=== PATIENT | male | born 1980 | race Two or more races ===

== ENCOUNTER 2022-04-30 16:27 | Inpatient (IN) | payer MEDICAID ==
[~2022-04-30] VITALS: Ht 172.7 cm; Wt 83.9 kg
[2022-04-30] MEDS ORDERED: IV NS 0.9% 1,000 ML BAG IV ONE ×2 (17:30→18:00)
[2022-04-30] MEDS ORDERED: FAMOTIDINE/PF INJ 20 MG/2 ML VIAL IV ONE (17:30)
[2022-04-30] MEDS ORDERED: Folic acid 1 MG in IV D5W 50 ML IV SCH (17:30)
[2022-04-30] MEDS ORDERED: Thiamine 100 MG in IV D5W 50 ML IV SCH (17:30)
[2022-04-30] MEDS ORDERED: LORAZEPAM INJ 2 MG/ML VIAL IV ONE (17:30)
[2022-04-30] MEDS ORDERED: ACETAMINOPHEN 325 MG TABLET PO ONE (18:00)
--- NOTE | 2022-04-30 18:00 | NUR ---
Pt made aware of plan of care. Concurs/cooperative.
[2022-04-30] MEDS ORDERED: ACETAMINOPHEN ES 500 MG TABLET ONE (18:05)
[2022-04-30 18:09] LABS: BASOPHILS % (AUTO) 0.1 % (0.0-2.0); HEMATOCRIT 45 % (39-51); HEMOGLOBIN 14.7 g/dL (13.5-17.5); LYMPHOCYTES # (AUTO) 0.6 K/uL (0.8-4.8); LYMPHOCYTES % (AUTO) 6.5 % (20.0-44.0); MEAN CORPUSCULAR HGB CONC 33 g/dl (31.0-36.0); MEAN CORPUSCULAR VOLUME 92 fL (80-96); MONOCYTES # (AUTO) 0.2 K/uL (0.1-1.30); MONOCYTES % (AUTO) 1.9 % (2.0-12.0); NEUTROPHILS # (AUTO) 8.3 K/uL (1.8-8.9); NEUTROPHILS % (AUTO) 91.5 % (43.0-81.0); PLATELET COUNT (AUTO) 305 K/uL (150-450); RED BLOOD CELL COUNT(AUTO) 4.92 MIL/uL (4.5-6.0); WHITE BLOOD COUNT (AUTO) 9.1 K/uL (4.3-11.0)
[2022-04-30 18:27] LABS: CALCIUM, SERUM 8.8 mg/dL (8.5-10.1); CARBON DIOXIDE 28 mmol/L (21-32); CHLORIDE 99 mmol/L (98-107); CREATININE 1.1 mg/dL (0.6-1.3); GLUCOSE 138 mg/dL (74-106); POTASSIUM 5.2 mmol/L (3.5-5.1); SODIUM SERUM 133 mmol/L (136-145); UREA NITROGEN, BLOOD 13 mg/dL (7-18)
[2022-04-30 18:41] LABS: ALANINE AMINOTRANSFERASE 40 U/L (12-78); ALBUMIN 3.1 g/dL (3.4-5.0); ALKALINE PHOSPHATASE 66 U/L (46-116); ASPARTATE AMINOTRANSFERASE 22 U/L (15-37); BILIRUBIN,DIRECT 0.3 mg/dL (0.0-0.2); BILIRUBIN,TOTAL 0.9 mg/dL (0.2-1.0); TOTAL PROTEIN, SERUM 7.4 g/dL (6.4-8.2)
[2022-04-30] MEDS ORDERED: CEFTRIAXONE 1 G in IV D5W 50 ML IV ONE (19:00)
[2022-04-30] MEDS ORDERED: AZITHROMYCIN 500 MG in IV D5W 250 ML IV ONE (19:00)
[2022-04-30] MEDS ORDERED: CEFTRIAXONE 1 G VIAL ONE (19:07)
--- NOTE | 2022-04-30 19:19 | NUR ---
Report given to CHANCE Padron
[2022-04-30 19:35] LABS: BILIRUBIN,URINE NEGATIVE (NEGATIVE); COLOR,URINE YELLOW (YELLOW); LEUKOCYTE ESTERASE ,URINE NEGATIVE (NEGATIVE); NITRITE, URINE NEGATIVE (NEGATIVE); PROTEIN,URINE NEGATIVE (NEGATIVE); UGLUCOSE NEGATIVE (NEGATIVE)
--- NOTE | 2022-04-30 20:17 | NUR ---
PROCAL 4.4
--- NOTE | 2022-04-30 20:41 | NUR ---
RM 109
--- NOTE | 2022-04-30 21:10 | NUR ---
REPORT GIVEN TO DWIGHT TYLER RN.
--- NOTE | 2022-04-30 21:27 | NUR ---
BROUGHT TO ROOM VIA ACLS PROTOCOL
[2022-04-30] MEDS ORDERED: Z GUARD REMEDY 4 OZ OINT TP PRN (22:00)
[2022-04-30] MEDS ORDERED: ONDANSETRON HCL/PF 4 MG/2 ML VIAL IVP PRN (22:00)
[2022-04-30] MEDS ORDERED: HYDROCODONE/APAP 10/325MG TABLET PO PRN (22:00)
[2022-04-30] MEDS ORDERED: MAGNESIUM HYDROXIDE 30 ML UDC PO PRN (22:00)
[2022-04-30] MEDS ORDERED: HYDROCODONE/APAP 5/325MG TABLET PO PRN (22:00)
[2022-04-30] MEDS ORDERED: LORAZEPAM 1 MG TABLET PO PRN (22:00)
[2022-04-30] MEDS ORDERED: MAG HYDROX/AL HYDROX/SIMETH 30 ML UDC PO PRN (22:00)
[2022-04-30] MEDS: IV NS 0.9% 1,000 ML IV SCH (22:15)
--- NOTE | 2022-04-30 23:00 | NUR ---
BEAM SAW OPERATORNETWORK SYSTEMS INTEGRATOR NOTE PATIENT WAS BROUGHT TO THE UNIT AT AROUND 2130 VIA STRETCHER, ACCOMPANIED BY 2 ER STAFFS. PATIENT IS ALERT AND ORIENTED X4. ABLE TO COMMUNICATE NEEDS WITH THE STAFFS. PATIENT WAS ADMITTED D/T FEVER/CHILLS WITH COUGH AND WEAKNESS THAT WORSEN TODAY. PATIENT WAS ALSO NOTED WITH PRODUCTIVE COUGH. DIRECTED TO ROOM 109-1 AND EXPLAINED ADMISSION PROCESS WHICH INCLUDES SKIN ASSESSMENT AND THE PATIENT AGREES WITH IT. UPON INSPECTION, SKIN IS INTACT AND NO EDEMA WAS NOTED. WITH IV ACCESS ON R AC 18G-SL. VITALS TAKEN AND FOLLOWS: BP- 102/66 P- 118, T- 98.7, O2 SAT 99% ON O2 INHALATION VIA NASAL CANNULA, R- 18. CONNECTED TO EXTERNAL INTEGRITY CONSULTANT WITH CURRENT READING OF ST 118. BELONGINGS AND VALUABLES WERE PROPERLY CHECKED AND DOCUMENTED. MEDICATED ORDERED. STARTED IV HYDRATION OF NS AT 100ML/HR. SAFETY MEASURES IN PLACE. KEPT BED IN LOCKED AND IN LOW POSITION TO REDUCE INJURY. ADVISED TO USE THE CALL LIGHT WHEN IN NEED OF ASSISTANCE.
[2022-05-01 01:00] VITALS: BP 101/53
[2022-05-01] MEDS: ACETAMINOPHEN 325 MG TABLET PO PRN ×2 (04:39→18:22)
--- NOTE | 2022-05-01 04:42 | NUR ---
GAS WELDER APPRENTICE NOTE PATIENT WAS NOTED WITH MILD FEVER (100F). MEDICATED WITH TYLENOL AND ENCOURAGED THE PATIENT TO INCREASE ORAL FLUID INTAKE.
[2022-05-01 05:00] VITALS: BP 116/74
--- NOTE | 2022-05-01 06:00 | NUR ---
WATER MECHANIC NOTE RECHECKED TEMPERATURE AND WENT DOWN FROM 100 TO 98F. NO C/O PAIN OR DISCOMFORT AND NOT IN ANY FORM OF ACUTE DISTRESS. PATIENT'S CURRENT TELE READING ST 120.
[2022-05-01 06:04] LABS: BASOPHILS % (AUTO) 0.2 % (0.0-2.0); EOSINOPHILS % (AUTO) 0.1 % (0.0-6.0); HEMATOCRIT 39 % (39-51); HEMOGLOBIN 12.7 g/dL (13.5-17.5); LYMPHOCYTES # (AUTO) 0.6 K/uL (0.8-4.8); LYMPHOCYTES % (AUTO) 4.5 % (20.0-44.0); MEAN CORPUSCULAR HGB CONC 33 g/dl (31.0-36.0); MEAN CORPUSCULAR VOLUME 91 fL (80-96); MONOCYTES # (AUTO) 0.2 K/uL (0.1-1.30); MONOCYTES % (AUTO) 1.5 % (2.0-12.0); NEUTROPHILS # (AUTO) 12.3 K/uL (1.8-8.9); NEUTROPHILS % (AUTO) 93.7 % (43.0-81.0); PLATELET COUNT (AUTO) 247 K/uL (150-450); RED BLOOD CELL COUNT(AUTO) 4.28 MIL/uL (4.5-6.0); WHITE BLOOD COUNT (AUTO) 13.2 K/uL (4.3-11.0)
--- NOTE | 2022-05-01 06:30 | NUR ---
RESIDENTIAL DRIVER CLOSING NOTE PATIENT IN BED, ASLEEP BUT EASY TO AROUSE AND RESPONSIVE. ABLE TO COMMUNICATE NEEDS WITH THE STAFFS. BREATHING EVEN AND NON LABORED. ON O2 INHALATION VIA NASAL CANNULA AT 2LPM. WITH IV ACCESS ON RAC 18G RUNNING WITH NS AT 100ML/HR. MEDICATED ORDERED. OFFERED AND ENCOURAGED FLUIDS TOLERATED. SAFETY MEASURES IN PLACE. KEPT BED IN LOCKED AND IN LOW POSITION. SIDE RAILS UP X2. ADVISED TO USE THE CALL LIGHT WHEN IN NEED OF ASSISTANCE. ALL NURSING NEEDS ATTENDED. ENDORSED TO INCOMING SHIFT FOR CONTINUITY OF CARE.
[2022-05-01 06:31] LABS: CALCIUM, SERUM 8.1 mg/dL (8.5-10.1); CREATININE 0.9 mg/dL (0.6-1.3); MAGNESIUM 1.8 mg/dL (1.8-2.4); PHOSPHORUS 2.4 mg/dL (2.5-4.9)
[2022-05-01] MEDS: IV NS 0.9% 1,000 ML IV SCH (08:38)
[2022-05-01 09:00] VITALS: BP 113/72
[2022-05-01] MEDS ORDERED: CEFTRIAXONE 1 G in IV D5W 50 ML IV SCH (09:00)
[2022-05-01 11:53] LABS: BAND % (MANUAL) 24 % (0.0-5.0); EOSINOPHILS % (MANUAL) 1 % (0-4); LYMPHOCYTES % (MANUAL) 7 % (16-48); METAMYELOCYTES % 1 % (0-0); MONOCYTES % (MANUAL) 5 % (0-11.0); MYELOCYTES % 1 % (0-0); NEUTROPHILS % (MANUAL) 61 (42-76)
[2022-05-01 13:00] VITALS: BP 129/73
--- NOTE | 2022-05-01 13:00 | NUR ---
RN NOTE CONSENT FORM FOR THORACENTESIS SIGNED BY PATIENT AND PLACE IN PATIENT'S CHART.
--- NOTE | 2022-05-01 14:04 | NUR ---
SS Consult: SS consult requested for polysubstance use. The pt. is a 42-year-old White male pt. who was admitted to [facility] for Respiratory Failure per EMR. Upon SS consult, the pt. is Alert & Oriented x 4 and makes good eye contact. The pt. appears unkempt. Pt. has depressed mood & affect. Pt. has clear speech and normal thought process. Pt. was calm & cooperative throughout interview. The pt. denies current SI/HI and denies current hallucinations. NARENDRA explored pt.s mental health Hx. Pt. denies any mental health diagnosis. NARENDRA explored pt.s living situation, Pt. states he resides at home [[address] [address]] with a roommate. SW explored pt.s drug & ETOH use. Pt. states he uses Methamphetamine about 3x/month. SW completed brief drug dependence intervention. Pt. states this is not a problem for him and has no interest in drug rehab at this time. Per pt. he is ambulatory with a and independent with all of his ADLs. Pt. states he receives EBT and is employed. Plan: Per pt. he will be returning home [[address] [address]] when ready for discharge. Per pt., he will contact his roommate to pick him up when ready for DC. SW provided pt. with substance use referrals and pt. accepted them. Pt. states he will use resources if he becomes interested is treatment. ADDICTION RESOURCES For Drugs and Alcohol [facility] sober living Referrals For Rehabilitation once sober Address:[address] [place] [address] [facility] [address] [place] [address] Det[address] [facility] Substance Abuse Helpline ([facility]) Outpatient, residential treatment, recovery support for youth/adults [facility] www.[facility]counsel[facility] Teen programs for drug/alcohol education and support Sylwia Gordon [facility]. Program for adults, sliding scale provides support and education Abby Sodraft www.[employer].org [place]; Detox/residential treatment programs; transition to sober living [facility] www.cri-help.org [place]; Outpatient and residential treatment programs; transition to sober living [facility] TEL: [phone] [facility] Fermin Camarena; Outpatient education and supportive programs for teens and adults [facility] www.o[facility]womensrecovery.org [place]; Residential treatment and work program for females only [facility] www.[facility].Share Your Brain [place]: Outpatient/residential treatment program for teens and young adults [facility] www.[facility].org [place] Detox, inpatient, outpatient for adults and youth [facility], [facility]. [place]; Outpatient programs and referrals to community residential programs. Alcoholics Anonymous -SFV information and meeting and scheduleswww.aa-intergroup.org Eh-Upwd-Vraqazk https://al-anon.org/ [place] support groups for family of alcoholics. Marijuana Anonymous www.madistrict6.org -SFV listing of meetings Narcotics Anonymous www.na.org SOBER LIVING RESOURCES [facility] www.soberhousing.net A non-profit agency that provides resources to recovery and sober living homes throughout [place] [facility] Sober Living Homes: A Work in Progress, [facility] [place] [facility], [facility]: [facility] x [phone], [place] [facility] Coed Sober Living Homes: [facility]--Outpatient [facility] [address] [place] [address] [place] [address] (Specializes in in-depth psychotherapy for emotional distress: anxiety, depression, interpersonal conflicts, life transitions, childhood abuse) [facility] [address] [place] [address] (Assist with solving problem marital difficulties, separation & divorce, aging parents, & grief, chronic & terminal illness) [facility] [address] [place] [address] (Deal with loss & grief, anxiety, marital difficulties) Homebound/Mental Health Services [address] [facility] [address] [place] [address] (Provide in-home mental services to people who are incapable of leaving their homes) [facility] of the Elderly [facility] Service[facility]Resource [facility] [address] [place] [address] [facility] [address] [place] [address] Mental Health Services [facility] [address] [place] [address] Services: Outpatient therapy for children, teens, young adults, adults, older adults, and families; Psychiatric services, medication support Psychiatric Outpatient Services [facility] Partial Hospitalization and Intensive Outpatient Program (Managed Care and [place] Only)[address] [facility] [phone] [facility] Partial Hospitalization and Outpatient [id number] [facility]. [address] [place], [place] [phone] [facility] Center [id number] [facility] [address] [place], [place] [phone] [facility] Partial Hospitalization and Outpatient [id number] [facility], Operated By [facility], [phone] Crisis and Hotline Telephone Numbers 24-Hour service unless stated [facility] Hotlines: [facility] Mental Health/Crisis Line........[phone] Suicide Prevention Center (24 Hours).......[phone] Suicide Prevention Crisis Center.......[phone] (24 Hours) Assaults Against Women Hotline.........366.396.5956 (24 Hours -- [facility]) Women and Children Crisis Long-Term...........[phone] (24 Hours) Child Abuse Hotline............596.273.5710 [facility] of Childrens Services [facility] Treatment [facility] (24 Hours)..........[phone] Alcoholics Anonymous (24 Hours)..........[phone] Cocaine Anonymous (24 Hours)............[phone] Narcotics Anonymous (24 Hours)..........[phone] [address] [facility] [address], [place] [address]
[2022-05-01] MEDS ORDERED: K PHOS NEUTRAL 250 MG TABLET PO ONE (16:00)
[2022-05-01 17:00] VITALS: BP 125/77
--- NOTE | 2022-05-01 18:55 | NUR ---
RN CLOSING NOTE PATIENT IN BED, ASLEEP BUT EASY TO AROUSE AND RESPONSIVE. ABLE TO COMMUNICATE NEEDS WITH THE STAFFS. BREATHING EVEN AND NON LABORED. ON O2 INHALATION VIA NASAL CANNULA AT 2LPM. WITH IV ACCESS ON RAC 18G RUNNING WITH NS AT 100ML/HR. MEDICATED ORDERED. OFFERED AND ENCOURAGED FLUIDS TOLERATED. SAFETY MEASURES IN PLACE. KEPT BED IN LOCKED AND IN LOW POSITION. SIDE RAILS UP X2. ADVISED TO USE THE CALL LIGHT WHEN IN NEED OF ASSISTANCE. ALL NURSING NEEDS ATTENDED. ENDORSED TO PM SHIFT FOR CONTINUITY OF CARE.
--- NOTE | 2022-05-01 19:28 | NUR ---
HAND TUBE BENDER OPENING NOTE RECEIVED PT RESTING IN BED, VERBALLY RESPONSIVE. A/O X4 AND ABLE TO MAKE NEEDS KNOWN. PT ON O2 @ 2 LPM VIA NC, TOLERATING WELL. NO SOB OR S/S OF RESPIRATORY DISTRESS. BREATHING EVEN AND UNLABORED. ON EXTERNAL MULTIPLE DRUM SANDER HELPER READING ST 117 BPM. IV ACCESS RAC 18G, INTACT AND PATENT. SAFETY PRECAUTIONS IN PLACE. BED IN LOWEST LOCKED POSITION, HOB ELEVATED, SIDE RAILS UP X2, AND CALL LIGHT AND TABLE WITHIN REACH. ALL NEEDS MET AT THIS TIME.
[2022-05-01] MEDS: AZITHROMYCIN 500 MG in IV D5W 250 ML IV SCH (20:51)
[2022-05-01 21:00] VITALS: BP 116/72
[2022-05-02 01:00] VITALS: BP 104/74
[2022-05-02 05:00] VITALS: BP 116/75
[2022-05-02 05:46] LABS: BASOPHILS % (AUTO) 0.1 % (0.0-2.0); EOSINOPHILS % (AUTO) 1.3 % (0.0-6.0); HEMATOCRIT 39 % (39-51); HEMOGLOBIN 12.9 g/dL (13.5-17.5); LYMPHOCYTES # (AUTO) 0.8 K/uL (0.8-4.8); LYMPHOCYTES % (AUTO) 6.5 % (20.0-44.0); MEAN CORPUSCULAR HGB CONC 33 g/dl (31.0-36.0); MEAN CORPUSCULAR VOLUME 90 fL (80-96); MONOCYTES # (AUTO) 0.6 K/uL (0.1-1.30); MONOCYTES % (AUTO) 4.8 % (2.0-12.0); NEUTROPHILS # (AUTO) 10.8 K/uL (1.8-8.9); NEUTROPHILS % (AUTO) 87.3 % (43.0-81.0); PLATELET COUNT (AUTO) 273 K/uL (150-450); RED BLOOD CELL COUNT(AUTO) 4.35 MIL/uL (4.5-6.0); WHITE BLOOD COUNT (AUTO) 12.4 K/uL (4.3-11.0)
[2022-05-02 06:12] LABS: CALCIUM, SERUM 9.1 mg/dL (8.5-10.1); CREATININE 0.8 mg/dL (0.6-1.3); MAGNESIUM 2.2 mg/dL (1.8-2.4); PHOSPHORUS 2.5 mg/dL (2.5-4.9); POTASSIUM 3.8 mmol/L (3.5-5.1)
--- NOTE | 2022-05-02 06:24 | NUR ---
OCEANIC SCIENCES PROFESSOR CLOSING NOTE PT RESTING IN BED, VERBALLY RESPONSIVE. A/O X4 AND ABLE TO MAKE NEEDS KNOWN. PT ON O2 @ 2 LPM VIA NC, TOLERATING WELL. NO SOB OR S/S OF RESPIRATORY DISTRESS. BREATHING EVEN AND UNLABORED. ON EXTERNAL FRAME MAKER READING ST 106 BPM. IV ACCESS RAC 18G, INTACT AND PATENT. ALL DUE MEDS GIVEN ORDERED. SAFETY PRECAUTIONS IN PLACE AT ALL TIMES. BED IN LOWEST LOCKED POSITION, HOB ELEVATED, SIDE RAILS UP X2, AND CALL LIGHT AND TABLE WITHIN REACH. ALL NEEDS MET AT THIS TIME AND WILL ENDORSE TO ONCOMING NURSE FOR MAXIMO.
--- NOTE | 2022-05-02 07:11 | NUR ---
BLANKING MACHINE OPERATOR OPENING NOTES RECEIVED PATIENT SLEEPING IN BED, A/Ox4 ABLE TO MAKE NEEDS KNOWN. ON 2L O2 VIA NC, NO S/S OF RESPIRATORY DISTRESS. ON TELE MONITORING SHOWING SINUS TACH HR 102. NO C/O OF CARDIAC DISTRESS OR DISCOMFORT. IV ACCESS RAC #18 S/L, INTACT AND PATENT. PATIENT AMBULATORY HAS BRP AND USES URINAL. SKIN INTACT. SAFETY MEASURES IN PLACE: BED LOCKED AND IN LOWEST POSITION, HOB ELEVATED, SIDE RAILS UPx2, CALL LIGHT WITHIN REACH. WILL CONTINUE TO MONITOR.
[2022-05-02 08:00] VITALS: BP 106/71
[2022-05-02] MEDS: CEFTRIAXONE 2 G in IV D5W 100 ML IV SCH (08:57)
[2022-05-02] MEDS ORDERED: CEFTRIAXONE 2 G in IV D5W 50 ML IV SCH (09:00)
[2022-05-02 12:18] VITALS: BP 105/70
--- NOTE | 2022-05-02 14:30 | NUR ---
RN NOTES PATIENT TITRATED DOWN TO 1 L O2 VIA NC. TOLERATING WELL. WILL CONTINUE TO MONITOR.
[2022-05-02 16:04] VITALS: BP 101/75
--- NOTE | 2022-05-02 18:13 | NUR ---
RN NOTES PATIENT NOW ON ROOM AIR, NO S/S OF RESPIRATORY DISTRESS. HAS 1L O2 VIA NC IF NEEDED. WILL CONTINUE TO MONITOR.
--- NOTE | 2022-05-02 18:40 | NUR ---
OPTICAL MODEL MAKER AND TESTER CLOSING NOTES PATIENT SLEEPING IN BED, A/Ox4 ABLE TO MAKE NEEDS KNOWN. STABLE ON ROOM AIR, NO S/S OF RESPIRATORY DISTRESS. ON TELE MONITORING SHOWING SINUS TACH HR 101. NO C/O OF CARDIAC DISTRESS OR DISCOMFORT. IV ACCESS RAC #18 S/L, INTACT AND PATENT. PATIENT AMBULATORY HAS BRP AND USES URINAL. SKIN INTACT. ALL DUE MEDICATION ADMINISTERED. SAFETY MEASURES MAINTAINED: BED LOCKED AND IN LOWEST POSITION, HOB ELEVATED, SIDE RAILS UPx2, CALL LIGHT WITHIN REACH. WILL ENDORSE TO NEXT SHIFT ANY MAXIMO.
--- NOTE | 2022-05-02 19:35 | NUR ---
MONITOR TECH OPENING NOTES RECEIVED PATIENT SLEEPING IN BED. EASILY AWAKEN BY VERBAL STIMULI. A/Ox 4. ABLE TO MAKE NEEDS KNOWN. ON 2L O2 VIA NC, NO S/S OF RESPIRATORY DISTRESS. ON TELE MONITORING SHOWING SINUS TACH HR 88. NO C/O OF CARDIAC DISTRESS OR DISCOMFORT. IV ACCESS RAC #18 S/L, INTACT AND PATENT. PATIENT AMBULATORY HAS BRP AND USES URINAL DRAINING YELLOW COLORED URINE. SAFETY MEASURES IN PLACE: BED LOCKED AND IN LOWEST POSITION, HOB ELEVATED, SIDE RAILS UPx2, CALL LIGHT WITHIN REACH. WILL CONTINUE TO MONITOR.
[2022-05-02 20:00] VITALS: BP 120/76
[2022-05-02] MEDS: AZITHROMYCIN 500 MG in IV D5W 250 ML IV SCH (22:34)
[2022-05-02] MEDS: ACETAMINOPHEN 325 MG TABLET PO PRN (23:12)
--- NOTE | 2022-05-02 23:12 | NUR ---
RN NOTES- TYLENOL PATIENT C/O OF HEADACHE 05/01. TYLENOL 650 MG GIVEN PRN. WILL CONTINUE TO MONITOR PATIENT.
[2022-05-03] VITALS: BP 111/72
[2022-05-03 04:00] VITALS: BP 101/68
[2022-05-03 06:51] LABS: BASOPHILS % (AUTO) 0.6 % (0.0-2.0); HEMATOCRIT 40 % (39-51); HEMOGLOBIN 13.4 g/dL (13.5-17.5); LYMPHOCYTES # (AUTO) 1.5 K/uL (0.8-4.8); LYMPHOCYTES % (AUTO) 21.6 % (20.0-44.0); MEAN CORPUSCULAR HGB CONC 34 g/dl (31.0-36.0); MEAN CORPUSCULAR VOLUME 90 fL (80-96); MONOCYTES # (AUTO) 0.6 K/uL (0.1-1.30); MONOCYTES % (AUTO) 8.7 % (2.0-12.0); NEUTROPHILS # (AUTO) 4.5 K/uL (1.8-8.9); NEUTROPHILS % (AUTO) 65.1 % (43.0-81.0); PLATELET COUNT (AUTO) 336 K/uL (150-450); RED BLOOD CELL COUNT(AUTO) 4.44 MIL/uL (4.5-6.0); WHITE BLOOD COUNT (AUTO) 6.9 K/uL (4.3-11.0)
[2022-05-03 07:18] LABS: CALCIUM, SERUM 9.1 mg/dL (8.5-10.1); CREATININE 0.8 mg/dL (0.6-1.3); MAGNESIUM 2.3 mg/dL (1.8-2.4); PHOSPHORUS 3.9 mg/dL (2.5-4.9); POTASSIUM 3.6 mmol/L (3.5-5.1)
--- NOTE | 2022-05-03 07:28 | NUR ---
FORM SETTER CLOSING NOTES PATIENT SLEEPING IN BED. EASILY AWAKEN BY VERBAL STIMULI. A/Ox 4. ABLE TO MAKE NEEDS KNOWN. ON 2L O2 VIA NC, NO S/S OF RESPIRATORY DISTRESS. ON TELE MONITORING SHOWING SINUS TACH HR 88. NO C/O OF CARDIAC DISTRESS OR DISCOMFORT. IV ACCESS RAC #18 S/L, INTACT AND PATENT. PATIENT AMBULATORY HAS BRP AND USES URINAL 400CC YELLOW COLORED URINE. SAFETY MEASURES IN PLACE: BED LOCKED AND IN LOWEST POSITION, HOB ELEVATED, SIDE RAILS UPx2, CALL LIGHT WITHIN REACH. WILL ENDORSE TO THE NEXT SHIFT.
--- NOTE | 2022-05-03 07:50 | NUR ---
HAND WRAPPER OPERATOR NOTES RECEIVED PATIENT IN BED, ALERT, ORIENTED X4, PATIENT ON ROOM AIR, NO SOB NOTED, PATIENT ON TELE ST 102. PATIENT HAS RIGHT AC HEP LOCK INTACT AND FLUSHED WELL, ALL NEEDS ATTENDED, RESPIRATION EVEN AND NOT LABORED. CALL LIGHT WITHIN REACH, SAFETY MEASURES IMPLEMENTED, INSTRUCTED TO USE URINAL. WILL CONTINUE TO MONITOR
[2022-05-03 08:00] VITALS: BP 120/74
[2022-05-03] MEDS: CEFTRIAXONE 2 G in IV D5W 100 ML IV SCH (09:11)
[2022-05-03 12:00] VITALS: BP 121/76
[2022-05-03] MEDS ORDERED: DOXY-326 PO (13:19)
[2022-05-03] MEDS ORDERED: CEFD300C3 PO (13:19)
--- NOTE | 2022-05-03 15:55 | NUR ---
HORSER UP NOTE PATIENT WAS GIVEN DISCHARGE INSTRUCTIONS, PATIENT VERBALIZED UNDERSTANDINGS. TELEMETRY BOX REMOVED, HEP LOCK REMOVED, DRY DRESSING APPLIED, NO BLEEDING. INSTRUCTED HIM HOW TO TAKE NEW MEDICATIONS AND POSSIBLE SIDE EFFECTS. INSTRUCTED HIM TO FOLLOW UP WITH PCP, VERBALIZED UNDERSTANDING. BELONGING CHECKED BY ERP SPECIALIST. AWAITING FOR FRIEND TO PICK HIM UP.
--- NOTE | 2022-05-03 16:03 | NUR ---
telemarketer supervisor note discharge patient home with stable condition, friend at bedside qasim mckinley , taken to lobby on w]\c with osmar
[2022-05-03 16:05] VITALS: BP 121/84
[2022-05-04 21:06] LABS: *MYCOPLASMA PNEUMONIAE IgG 206 U/mL (0-99); *MYCOPLASMA PNEUMONIAE IgM <770 U/mL (0-769)
== END 2022-05-03 16:07 | disposition home or self-care (01) | DRG 720 ==
LOC: ER 16:45 → TELE1 20:45
PROVIDERS: ADMIT Internal Medicine; ATTEND Nurse Practitioner Family
DX: A41.9 Sepsis, unspecified organism (principal); J96.01 Acute respiratory failure with hypoxia; E87.20 Acidosis, unspecified; J90 Pleural effusion, not elsewhere classified; J15.9 Unspecified bacterial pneumonia; R65.20 Severe sepsis without septic shock; Z20.822 Contact with and (suspected) exposure to COVID-19; F15.10 Other stimulant abuse, uncomplicated; F17.210 Nicotine dependence, cigarettes, uncomplicated; R53.1 Weakness
CPT/HCPCS: 36415; 71045-TC; 76604-TC; 80048-TC; 80076-TC; 83605-TC; 83690-TC; 83735-TC; 83880; 84100-TC; 84484-TC; 85025-TC; 85378-TC; 85730-TC; 86704; 86713; 86738; 86803; 87040-TC; 87081-TC; 87086-TC; 87340; 87806; A4223; C9803; G0378; J0456; J0696; J7030; J7060